=== PATIENT | female | born 1925 | race African-American/Black ===

== ENCOUNTER → 2016-12-02 | Outpatient (CLI) | payer OTHER, MEDICARE ==
[~2016-12-02] MED LIST: BENAZEPRIL HCL20 MG PO; BYSTOLIC 5 MG5 M1 PO; COLACE100 MG PO; DULCOLAX5 MG PO; ENOXAPARIN40 MG/0.1 SUBQ; FENTANYL PA12 MCG/H1 TP; FORTEO750 MCG/3 SUBQ; HYDROCODONE-AP1 EAC6 PO; IRON325 PO; KETOROLAC 0.5% E5 ML OP; KLOR-CON 1010 MEQ PO; MAALOX PLUS X PO; MAGNESIUM400 M1 PO; MIRALAX17 GM PO; NORVASC 5 MG TAB5 MG PO; PAXIL10 MG PO; RESTASIS1 EACH OPHTHALMIC; VITAMIN D1000 UNI1 PO; WELCHOL 625 MG625 M1 PO; WELCHOL 625 MG625 MG PO; [UNRECOGNIZED DRUG - OTHER] OP
== END ==
LOC: RAD 13:25
DX: Z12.31 Encounter for screening mammogram for malignant neoplasm of breast (principal)